=== PATIENT | male | born 1940 | race Caucasian/White ===

== ENCOUNTER 2020-03-26 13:05 | Emergency (ER) | payer MEDICARE, BC, SELFPAY ==
[2020-03-26] VITALS (11 sets, daily range): BP systolic 116–147; BP diastolic 62–70; PULSE 54–67; RESP 18–25; TEMP 36.7; O2SAT 95–100; BMI 25.8
--- NOTE | 2020-03-26 13:28 | DI.CT.S_ITS ---
PROCEDURE: CT HEAD/BRAIN WO CON INDICATIONS: persistant dizziness TECHNIQUE: Noncontrast 4.5 mm thick angled axial sections acquired from the foramen magnum to the vertex, with coronal and sagittal reformats. For radiation dose reduction, the following was used: automated exposure control, adjustment of mA and/or kV according to patient size. COMPARISON: None. FINDINGS: Image quality: Excellent. CSF spaces: Basal cisterns are patent. No extra-axial fluid collections. The ventricles are symmetric in size and shape. Brain: No intracranial bleeds or masses. There is cerebral volume loss for age, with resultant ventricular and sulcal prominence. There are periventricular and deep white matter chronic small vessel ischemic changes. There is intracranial internal carotid artery atherosclerosis. Skull and face: Calvarium and visualized facial bones appear intact, without suspicious lesions. Sinuses: Visualized sinuses and mastoids are clear. IMPRESSION: Unremarkable noncontrast head CT for age, without an imaging explanation found for the patient's presenting symptoms. Dictated by: Brian Reed M.D. on 03/26/2020 at 12:57 Approved by: Brian Reed M.D. on 03/26/2020 at 12:58
[2020-03-26] MEDS: MECLIZINE HCL 12.5 MG TABLET 50 MG PO (13:40)
[2020-03-26 13:41] LABS: Add Manual Diff / Slide Review NO; Basophils Absolute Auto 0 /uL (0-100); Basophils Percent Auto 0.4 % (0-2); Eosinophils Absolute Auto 100 /uL (0-450); Eosinophils Percent Auto 0.8 % (2-4); Hematocrit 42.6 % (41-53); Hemoglobin 14.6 g/dL (13.5-17.5); Lymphocytes Absolute Auto 1200 /uL (1100-4500); Lymphocytes Percent Auto 11.5 % (25-40); Mean Corpuscular HGB Conc 34.3 % (30-36); Mean Corpuscular Hemoglobin 29.9 PG (26-34); Mean Corpuscular Volume 87.2 fL (80-100); Monocytes Absolute Auto 600 /uL (0-900); Monocytes Percent Auto 6.1 % (3-14); Neutrophils Absolute Auto 8400 /uL (1500-7000); Neutrophils Percent Auto 81.2 % (50-75); Platelet Count 292 X10^3/uL (150-400); Red Blood Cell Count 4.89 X10^6/uL (4.5-5.9); Red Cell Distribution Width 13.4 % (11.6-14.8); White Blood Cell Count 10.3 X10^3/uL (4.5-11.0)
[2020-03-26] MEDS: ONDANSETRON 4 MG/2 ML INJ IV (13:41)
[2020-03-26 13:49] LABS: INR 1.2 (0.9-1.3); Prothrombin Time 14.2 SECONDS (10.1-12.7)
--- NOTE | 2020-03-26 13:51 | ED_ITS ---
HPI - Dizziness General Chief Complaint: Dizziness Stated Complaint: dizzy Time Seen by Provider: 03/26/20 13:16 Source: patient Mode of arrival: Ambulatory Limitations: no limitations History of Present Illness HPI Narrative: The patient developed dizziness 2 days ago. He denies any headaches, he has no visual changes, no sinus pressure or sore throat. He has no ear complaints. He has a remote history remain years. He has not had to deal with chronic ear problems. He does take medications for allergies, he feels his allergies not been a problem for him of late. He has no confusion, no focal motor sensory deficits. He denies chest pain, dyspnea, or palpitations. He has no history of heart disease, no history of stroke. The dizziness waxes and wanes. He has nausea when the dizziness is most severe. He has not vomited. His appetite is okay. He has no diarrhea, he has no abdominal discomfort. Related Data Previous Rx's Medication Instructions Recorded meclizine 25 mg PO QID PRN #20 tab 03/26/20 ondansetron 4 mg PO Q4H PRN #14 tab 03/26/20 Allergies Allergy/AdvReac Type Severity Reaction Status Date / Time No Known Drug Allergies Allergy Verified 03/26/20 13:14 Review of Systems Constitutional Constitutional: Reports system reviewed and no additional complaints, except as documented and Denies frequent falls Eyes Eyes: Denies change in vision ENT Ears, Nose, Mouth, and Throat: Reports dizziness Comments: No ear pressure. No sinus pressure. No postnasal drainage, and no sore throat. Cardiovascular Cardiovascular: Denies chest pain, Denies irregular heart rhythm, Denies lightheadedness, Denies palpitations, Denies dyspnea and Denies orthopnea Respiratory Respiratory: Denies cough, Denies dyspnea and Denies wheezing Gastrointestinal Gastrointestinal: Reports as per HPI and Reports nausea (When dizziness exacerbates.) Genitourinary Genitourinary: Denies dysuria Genitourinary: Denies dysuria Musculoskeletal Musculoskeletal: Denies numbness Comments: No back pain. No extremity pain. Integumentary/Breasts Skin/Breast: Denies pruritus, Denies erythema, Denies rash and Denies wounds Neurologic Neurologic: Denies behavioral changes, Denies confusion, Reports dizziness, Denies frequent falls and Denies numbness Psychiatric Psychiatric: Denies behavioral changes and Denies confusion Endocrine Endocrine: Denies palpitations Allergic/Immunologic Allergic/Immunologic: Denies wheezing Patient History Medical History (Updated 03/26/20 @ 17:58 by Ronny Camacho MD) No chronic problems (Acute) Social History Smoking Status: Unknown if ever smoked Smoking Status: Unknown if ever smoked alcohol intake frequency: holidays/special occasions only Substance Use Type: does not use Exam Initial Vital Signs Initial Vital Signs: Vital Signs Temperature 98.0 F 03/26/20 13:09 Pulse Rate 67 03/26/20 13:09 Respiratory Rate 19 03/26/20 13:09 Blood Pressure 147/70 H 03/26/20 13:09 Pulse Oximetry 100 03/26/20 13:09 Const General: cooperative and well developed Nutritional Appearance: well nourished HENMS Head: normocephalic and atraumatic Ears: external ears normal, TM's normal bilaterally and other (Hallpike testing is positive to the left side.) Nose: external nose normal and nasal discharge Face and sinus: sinuses nontender and face symmetric Mouth: oral mucosae normal and moist mucous membranes Teeth and gingiva: dentition normal Throat: tonsils normal and uvula midline Eyes General: appearance normal, both eyes and all related structures Eyelids: eyelids normal Conjunctivae: conjunctivae normal Sclera: sclerae normal Pupils: PERRL EOM: EOM intact bilaterally Neck Neck: No lymphadenopathy and No JVD Thyroid: thyroid normal Resp Effort & Inspection: normal respiratory effort and able to speak in complete sentences Auscultation: clear to auscultation bilaterally, no rales, no rhonchi and no wheezes Cardio Rate: regular rate Rhythm: regular rhythm Heart Sounds: S1 normal, S2 normal, no click, no gallops, no murmurs and no rubs Pulses: normal peripheral pulses GI Inspection: non-distended Palpation: soft, no hepatosplenomegaly, No guarding and No tender Auscultation: normal bowel sounds Back/Spine/Pelvis Back: No CVA tenderness Cervical Spine: cervical ROM normal Thoracic/Lumbar Spine: thoracic and lumbar spine normal to inspection Skin General: no rashes or lesions noted and No petechiae Neuro General: patient alert, patient oriented x3, gait normal and no focal motor def icits Speech: speech normal Gait: normal gait Coordination: [id number] test normal Extrem General: full ROM, no pedal edema and no calf tenderness Psych Appearance: well kempt Mental Status: mental status grossly normal Attitude: cooperative Thought Content: normal and suicidality Judgment: judgment good Course Course Course Narrative: Hallpike testing was positive the left. Symptoms proved dramatic with Zofran and meclizine. His head CT and medical workup was benign other than a elevated glucose level. He will be discharged on the same medications. Orders Ordered: ED Orders 03/26/20 13:14 EKG-12 Lead Routine 03/26/20 13:15 Basic Metabolic Panel Stat Complete Blood Count AUTO DIFF Stat Prothrombin Time INR Stat Troponin I Stat 03/26/20 13:28 CT head/brain wo con Stat 03/26/20 16:01 Urinalysis Screen (Dip Only) Stat Discontinued Medications Meclizine HCl (Antivert) 50 mg PO NOW ONE Stop: 03/26/20 13:28 Last Admin: 03/26/20 13:40 Dose: 50 mg Documented by: SUSHIL Ondansetron HCl (Zofran) 4 mg IV NOW ONE Stop: 03/26/20 13:28 Last Admin: 03/26/20 13:41 Dose: 4 mg Documented by: SUSHIL Vital Signs Vital signs: Vital Signs - 8 hr 03/26/20 13:09 03/26/20 13:19 03/26/20 13:30 Temperature 98.0 F Pulse Rate 67 65 61 Respiratory Rate 19 25 H 22 Blood Pressure 147/70 H Pulse Oximetry 100 97 95 03/26/20 14:00 03/26/20 14:30 03/26/20 14:54 Temperature Pulse Rate 59 L 56 L 60 Respiratory Rate 22 19 20 Blood Pressure 120/64 Pulse Oximetry 95 95 95 03/26/20 15:00 03/26/20 15:30 03/26/20 15:57 Temperature Pulse Rate 54 L 60 58 L Respiratory Rate 18 22 19 Blood Pressure 116/62 127/68 135/68 Pulse Oximetry 96 96 98 03/26/20 16:00 03/26/20 16:30 Temperature Pulse Rate 56 L 61 Respiratory Rate 18 23 Blood Pressure 123/66 122/68 Pulse Oximetry 98 96 MDM - Dizziness Lab Data Result diagrams: 03/26/20 13:15 03/26/20 13:15 Labs: Lab Results 03/26/20 03/26/20 03/26/20 Range/Units 13:15 13:15 13:15 WBC 10.3 (4.5-11.0) X10^3/uL RBC 4.89 (4.5-5.9) X10^6/uL Hgb 14.6 (13.5-17.5) g/dL Hct 42.6 (41-53) % MCV 87.2 (80-100) fL MCH 29.9 (26-34) PG MCHC 34.3 (30-36) % RDW 13.4 (11.6-14.8) % Plt Count 292 (150-400) X10^3/uL Neut % (Auto) 81.2 H (50-75) % Lymph % (Auto) 11.5 L (25-40) % Ocean % (Auto) 6.1 (3-14) % Eos % (Auto) 0.8 L (2-4) % Baso % (Auto) 0.4 (0-2) % Neut # (Auto) 8400 H (5518-4045) /uL Lymph # (Auto) 1200 (2632-3149) /uL Ocean # (Auto) 600 (0-900) /uL Eos # (Auto) 100 (0-450) /uL Baso # (Auto) 0 (0-100) /uL PT 14.2 H (10.1-12.7) SECONDS INR 1.2 (0.9-1.3) Sodium 136 L (137-145) mmol/L Potassium 4.1 (3.4-5.1) mmol/L Chloride 104 (98-107) mmol/L Carbon Dioxide 26 (22-32) mmol/L BUN 13 (9-20) mg/dL Creatinine 0.85 (0.66-1.25) mg/dL Estimated GFR > 60.0 (>60) mL/min BUN/Creatinine Ratio 15.3 (6-22) Glucose 159 H (80-110) mg/dL Calcium 9.1 (8.4-10.2) mg/dL Troponin I < 0.012 (0.01-0.034) ng/mL Urine Dip Bedside Urine Glucose Negative Bedside Urine Bilirubin - Negative Bedside Urine Ketone - Negative Urine Specific [place] 1.020 Bedside Urine Occult Blood - Negative Bedside Urine pH 6.0 Bedside Urine Protein - Negative Bedside Urine Urobilinogen - Negative Bedside Urine Nitrite - Negative Bedside Urine Leukocytes - Negative Esterase Imaging Data CT scan - head: Radiologist's Impression: 23 Ronny Camacho MD Find Patient Imaging - Dayne Hearn 79 M 1940 ACTIVITY DATE EXAM STATUS AUTHOR 03/26/20 13:[address] [address] [address] Scan Report Signed Patient: Dayne Hearn LMR#: [id number] : 1940Acct:[id number] Age/Sex: 79 / MDate of Service: 03/26/20 Loc: ED Accession Number: [id number] Procedure: CT head/brain wo con Ordering Provider: Ronny Camacho MD PROCEDURE: CT HEAD/BRAIN WO CON INDICATIONS: persistant dizziness TECHNIQUE: Noncontrast 4.5 mm thick angled axial sections acquired from the foramen magnum to the vertex, with coronal and sagittal reformats. For radiation dose reduction, the following was used: automated exposure control, adjustment of mA and/or kV according to patient size. COMPARISON: None. FINDINGS: Image quality: Excellent. CSF spaces: Basal cisterns are patent. No extra-axial fluid collections. The ventricles are symmetric in size and shape. Brain: No intracranial bleeds or masses. There is cerebral volume loss for age, with resultant ventricular and sulcal prominence. There are periventricular and deep white matter chronic small vessel ischemic changes. There is intracranial internal carotid artery atherosclerosis. Skull and face: Calvarium and visualized facial bones appear intact, without suspicious lesions. Sinuses: Visualized sinuses and mastoids are clear. IMPRESSION: Unremarkable noncontrast head CT for age, without an imaging explanation found for the patient's presenting symptoms. Dictated by: Brian Reed M.D. on 03/26/2020 at 12:57 Approved by: Brian Reed M.D. on 03/26/2020 at 12:58 Discharge Plan Departure Patient Disposition: Home Clinical Impression: Labyrinthitis of left ear Discharge Date/Time: 03/26/20 16:46 Instructions: DI for Labyrinthitis Activity Restrictions/Additional Instructions: Meclizine every 6 hours as needed for dizziness. Zofran every 4 hours as needed for nausea. Rest, drink plenty of fluids. Return to an ER if symptoms escalate. Prescriptions: New meclizine 25 mg tablet 25 mg PO QID PRN (Reason: dizziness) Qty: 20 RF: 0 ondansetron 4 mg tablet,disintegrating 4 mg PO Q4H PRN (Reason: nausea and vomiting) Qty: 14 RF: 0
[2020-03-26 13:53] LABS: BUN Creatinine Ratio 15.3 (6-22); Blood Urea Nitrogen 13 mg/dL (9-20); Calcium 9.1 mg/dL (8.4-10.2); Carbon Dioxide 26 mmol/L (22-32); Chloride 104 mmol/L (98-107); Estimated Glomerular Filt Rate > 60.0 mL/min (>60); Glucose 159 mg/dL (80-110); HEMOLYSIS < 15 (0-50); Potassium 4.1 mmol/L (3.4-5.1); Sodium 136 mmol/L (137-145)
[2020-03-26 14:05] LABS: Troponin I < 0.012 ng/mL (0.01-0.034)
== END 2020-03-26 16:46 | disposition home or self-care (01) ==
PROVIDERS: Emergency Provider Emergency Medicine
DX: H83.02 Labyrinthitis, left ear (principal)
CPT/HCPCS: 70450; 80048; 81003; 84484; 85025; 85610; 93005; 96374; 99284; J2405